=== PATIENT | female | born 2000 | race African-American/Black ===

== ENCOUNTER 2021-12-13 21:43 | Emergency (ER) | payer MEDICAID ==
[~2021-12-13] VITALS: Ht 144.8 cm; Wt 44.5 kg
[2021-12-13 22:00] VITALS: BP 108/68
[2021-12-13] MEDS ORDERED: LORazepam 0.5 MG TAB PO ONE (22:55)
[2021-12-13 23:11] LABS: BARBITURATE, URINE NEGATIVE ng/ml (NEG <=200); BENZODIAZEPINE, URINE NEGATIVE ng/mL (NEG <=200); CANNABINOID, URINE POSITIVE ng/mL (NEG <=50); COCAINE, URINE NEGATIVE ng/mL (NEG <=300); OPIATE, URINE POSITIVE ng/mL (NEG <=2000); PHENCYCLIDINE SCREEN,URINE NEGATIVE ng/mL (NEG <=25)
[2021-12-13] MEDS ORDERED: ONDANSETRON 4 MG ODT PO ONE (23:40)
[2021-12-13] MEDS ORDERED: ACETAMINOPHEN 325 MG TAB PO ONE (23:45)
[2021-12-13 23:46] LABS: APPEARANCE,URINE HAZY (CLEAR); BILIRUBIN,URINE 1+ (NEGATIVE); BLOOD, URINE NEGATIVE (NEGATIVE); COLOR,URINE YELLOW (YELLOW); LEUKOCYTE ESTERASE ,URINE NEGATIVE (NEGATIVE); NITRITE, URINE NEGATIVE (NEGATIVE); UGLUCOSE NEGATIVE (NEGATIVE)
[2021-12-13 23:56] LABS: RBC,URINE 0-5 /HPF (0-5); WBC,URINE 0-5 /HPF (0-5)
[2021-12-14 00:35] VITALS: BP 105/82
== END 2021-12-14 00:35 | disposition home or self-care (01) ==
LOC: MED 21:43
DX: F11.23 Opioid dependence with withdrawal (principal); R11.2 Nausea with vomiting, unspecified; R10.9 Unspecified abdominal pain; J45.909 Unspecified asthma, uncomplicated; F12.90 Cannabis use, unspecified, uncomplicated
CPT/HCPCS: 80305; 81001; 81025; 87086; 99284; Q0162